=== PATIENT | female | born 1985 | race Caucasian/White ===

== ENCOUNTER 2019-03-02 10:05 | Inpatient (IN) ==
[2019-03-02] MEDS ORDERED: *HR* FentaNYL (PF) 100 MCG/2 ML VIAL ONE (10:51)
[2019-03-02] MEDS ORDERED: *HR* Morphine Sulfate/PF 10 MG/10 ML AMPUL ONE (10:51)
[2019-03-02] MEDS ORDERED: Ringers Solution, Lactated 1,000 ML ONE ×2 (11:15→13:29)
[2019-03-02] MEDS ORDERED: Ringers Solution, Lactated 1,000 ML IVC ONE (11:24)
[2019-03-02] MEDS ORDERED: Metoclopramide 10 MG/2 ML VIAL IVP ONE (11:24)
[2019-03-02] MEDS ORDERED: Famotidine 20 MG/2 ML VIAL IVP ONE (11:24)
--- NOTE | 2019-03-02 11:38 | OB/GYN Procedure Note ---
Section - Date of procedure: 03/02/19 Preop diagnosis: desires repeat , desires sterilization Post-op diagnosis: same Procedure: section, repeat low transverse, bilateral tubal ligation Surgeon: Ruby Dougherty Blood Loss: 400 Was there an assistant sales manager present: Yes Mica Miner: Gillian Galdamez (proctoring/precepting) Liquor Clerk: Delon Roland Anesthesia Type: Spinal section complications: none Disposition: L&D Recovery Room Specimens: Placenta, Right tube segment, Left tube segment - (s) A Delivery Date: 03/02/19 Infant Delivery Time: 10:32 Presentation: vertex Gender: Female Viability: Viable Pounds: 7 Ounces: 3 Gram Weight: 3.26 kg at 1 minute: 8 at 5 minutes: 9 Placenta: spontaneous Cord: nuchal cord, 3 umbilical vessels, delivered through nuchal - Narrative Narrative: Patient was taken to the operative suite and placed under spinal anesthetic. She was then prepped and draped in normal sterile fashion in the dorsal supine position. Timeout was then performed. Antibiotics were given at room time. SCDs are on and active. Pfannenstiel skin incision is then made and carried through to underlying layer of fascia with the Bovie. The fascia was then incised in the midline and incision extended laterally with the Solorio scissors. The fascia was tented up and dissected off the rectus muscles sharply. The rectus muscles were in the midline and the peritoneum was tented up and entered sharply with the Metzenbaum scissors. The peritoneal incision was then extended bluntly. The bladder blade was then inserted and the vesicouterine peritoneum was identified. A low transverse uterine incision was then made superior to the bladder reflection. The incision was extended digitally. The vertex was brought to the incision and the was delivered using fundal pressure. There was a loose nuchal cord that was delivered through. Cord was clamped and cut. Infant was handed to waiting nursery staff. Placenta delivered spontaneously complete and intact with a three-vessel cord. The uterus was cleared of all clots and debris using moist laparotomy sponge. The uterine incision was then closed using 0 Vicryl in a running locked fashion. A second layer of the same suture was used to obtain excellent hemostasis. Attention was then turned to the patient's tubes. The right tube was grasped and followed to the fimbriated end. The midportion of the tube was then grasped and elevated. A knuckle of tube was then double suture ligated using O plain gut. The knuckle of tube was then transected in a [place] fashion. Hemostasis was assured and the tube was returned to the abdomen. Attention was then turned to the patient's left adnexa. The left tube was then grasped and followed to the fimbriated end. The fimbria were adhered to the left ovary and the adhesions were taken down using the Bovie electrocautery. A partial salpingectomy with fimbriectomy was then performed using O plain gut. The distal portion of the t ube was then transected and hemostasis was assured. The tube was returned to the abdomen. The abdomen was then cleared of all clots and debris using copious irrigation. The fascial incision was then closed using 0 PDS in a running fashion. The subcuticular tissue was then reapproximated using 0 Vicryl in a running fashion. The skin was closed using 4-0 Vicryl in a subcuticular fashion. [place] dressing is then placed. Mother and taken to recovery in stable condition.
[2019-03-02 11:47] LABS: Basophils % 0.2 %; Eosinophils % 0.3 %; Hematocrit 36.5 % (35.3-44.9); Hemoglobin 11.3 g/dL (11.5-15.4); Immature Granulocytes % 0.4 % (0-4); Lymphocytes # 2.1 K/mcL (0.6-4.6); Lymphocytes % 22.9 %; Mean Corpuscular Volume 80.8 fL (83.0-100.0); Mean Platelet Volume 11.2 fL (9.4-12.4); Monocytes # 0.5 K/mcL (0.0-1.3); Monocytes % 5.5 %; Neutrophils # 6.4 K/mcL (1.6-8.9); Platelet Count 221 K/mcL (140-400); Red Blood Count 4.52 M/mcL (3.82-4.97); Red Cell Distribution Width 13.2 % (11.5-14.5); Segmented Neutrophils % 70.7 %
[2019-03-02 11:50] LABS: Amphetamine Screen,Urine Negative ng/mL (Cutoff=1000); Barbiturate Screen,Urine Negative ng/mL (Cutoff=200); Benzodiazepines Screen,Urine Negative ng/mL (Cutoff=200); Cannabinoid Screen,Urine Negative ng/mL (Cutoff = 50); Cocaine Screen,Urine Negative ng/mL (Cutoff= 300); Opiate Screen,Urine Negative ng/mL (Cutoff=300); Phencyclidine Screen,Urine Negative ng/mL (Cutoff=25)
--- NOTE | 2019-03-02 12:18 | Anesthesia Evaluation PreOp ---
Date of Encounter: 03/02/19 Time of Encounter: 12:16 - Past History Planned Operation: repeat c/s Cardiac History: Denies any Significant Hx Pulmonary History: Denies Any Significant HX FIRE PROTECTION ENGINEER History: Denies Any Significant HX Other Medical History: GERD Anesthesia History: No Prior Anesthetic Complications, Past Anesthesia (c/s, foot) : Yes Test: Positive Alcohol Use: none Drug use: none Medications and Allergies Pnv No.95/Ferrous Fum/Folic AC [ Caplet] 1 tab PO DAILY 03/02/19 [History] Allergy/AdvReac Type Severity Reaction Status Date / Time No Known Allergies Allergy Verified 07/26/17 05:20 - Meds/Allergy Pre-op Review Medications Reviewed: Yes Allergies Reviewed: Yes Beta Blockers on Current Med List: No Anesthesia Results - Labs 03/02/19 10:20 Anesthesia Exam 113/76 70 16 fht 133 Height: 4'11" Weight: 54k NPO (# of Hours): 12 Pain Scale: 1 Pain Scale Used: Numeric (1 - 10) - HEENT Pupil (Motor): Pupils equal Mallampati: II Teeth: Normal Oral Opening: Greater than 3 - FIRE PROTECTION ENGINEER LOC: Oriented FIRE PROTECTION ENGINEER Motor: Normal RUE, Normal LUE, Normal RLE, Normal LLE, Normal Face FIRE PROTECTION ENGINEER Sensory: Normal: RUE, LUE, RLE, LLE, Face - Cardiac Rhythm: Regular Murmur: None - Pulmonary Breath Sounds: bilateral Clear Respiratory Effort: Symmetrical Anesthesia Assess/Plan ASA Score: 2 Level of consciousness: Cooperative Anesthetic Plan: Spinal (risks discussed, questions answered, consented) Autologous Blood: Yes Monitoring Plan: Standard Monitors Recovery Plan: PACU
--- NOTE | 2019-03-02 12:28 | OB/GYN History & Physical ---
Date of Encounter: 03/02/19 Time of Encounter: 12:26 Assessment and Plan (1) 39 weeks gestation of Current visit: Yes Status: Acute (2) Previous delivery affecting Current visit: Yes Status: Acute Risks, benefits, and alternatives discussed previously and informed consent obtained. All questions have been answered for the patient and family. History of Present Illness Chief complaint: repeat HPI: Ms. Wells is a 33 year old female G2 P 1-0-0-1 at 39 1/7 weeks presents for r epeat section. She denies any contractions, vaginal bleeding, or leaking fluid. She reports good movement. Her has been uncomplicated. Past Med Surg Social Fam HX - Past Medical History Source: patient Medical history: no medical history Psychiatric history: no psych history - Past Surgical History Surgical History: , other Additional surgical history: right foot sx 2004, prev. c/s - Social History Smoking Status: Never smoker Smokeless Tobacco Status: No Alcohol use: none Drug use: none Occupational status: employed Current living situation: Home - Independent Activity Level: Independent ambulation - Family History Father Living Status: Still Living Hx Family Cardiac Disorders: Yes (aortic anerysm) Hx Family Respiratory Disorders: No Hx Family Cancer: No Hx Family GI Disorders: No Hx Family Endocrine Disorder: No Hx Family Neuromuscular Disorders: No Hx Family Neurologic Disorders: No Hx Family HEENT Disorders: No Hx Family Autoimmune Disorders: No Obstetrical History - Pregnancies : 2 Para: 1 Livin Medications and Allergies Pnv No.95/Ferrous Fum/Folic AC [ Caplet] 1 tab PO DAILY 03/02/19 [History] Allergy/AdvReac Type Severity Reaction Status Date / Time No Known Allergies Allergy Verified 07/26/17 05:20 Review of System OB All systems PM: reviewed and no additional remarkable complaints except as stated Exam - Constitutional Constitutional: well developed, well nourished, no acute distress, average body habitus - HEENT HEENT: EOMI - Neck Neck exam: full ROM - Lungs Respiratory exam: CTAB - Cardiovascular Cardiovascular exam: RRR - Abdomen Abdomen: Present: bowel sounds normal, gravid, non tender - Extremities Extremities exam: warm Results Result Diagrams: 03/02/19 10:20 Abnormal lab results Hgb 11.3 g/dL (11.5-15.4) L 03/02/19 10:20 MCV 80.8 fL (83.0-100.0) L 03/02/19 10:20 MCH 25.0 pg (28.0-33.3) L 03/02/19 10:20 MCHC 31.0 g/dL (31.6-35.5) L 03/02/19 10:20 All other labs normal. - VTE Reasons for not Prescribing Prophylaxis: Treatment not Indicated - Low risk for VTE
[2019-03-02] MEDS ORDERED: EPHEDrine 50 MG/ML VIAL ONE (12:54)
[2019-03-02] MEDS ORDERED: Acetaminophen IV 1,000 MG/100 ML INFUS..BTL IVPB ONE (13:22)
[2019-03-02] MEDS ORDERED: *HR* HYDROmorphone (PF) 1 MG/ML SYRINGE IVP PRN (13:22)
[2019-03-02] MEDS ORDERED: *HR* Meperidine 25 MG/ML SYRINGE IVP PRN (13:22)
[2019-03-02] MEDS ORDERED: Ondansetron 4 MG/2 ML VIAL IVP PRN ×2 (13:22→17:18)
--- NOTE | 2019-03-02 13:22 | Anesthesia Procedures ---
Date of Encounter: 03/02/19 Time of Encounter: 13:20 Procedures: Anesthesia - Epidural/Spinal Patient ID/Chart reviewed: Yes Patient examined: Yes OB Eval: Gestational age: 39 OB Eval: : 2 OB Eval: Hx Para: 1 OB Eval: Dilated at (cm): 1 OB Eval: Contractions: Non-stressed pattern Consent Obtained: Yes Supplemental Oxygen: None/Room Air Site Prep: Aseptic Technique, Sterile prep and drape, 0.5% Chlorhexidine/Alcohol Patient position: upright Local Anesthetic: Lidocaine 1% Amount of Local Anesthetic used: 3 Interspace Used: L3-L4 Loss of Resistance (POLI): No Blood: No CSF: Yes Paresthesia: No Spinal Dose: marcaine 12mg, duramorph 0.25 mg fentanyl 10mcg Procedure: aseptic, tolerated well, VSS, effective Vitals + FHT's: 111/78 88 16 fht 136
--- NOTE | 2019-03-02 14:03 | OB/GYN Procedure Note ---
Section - Date of procedure: 03/02/19 Preop diagnosis: desires repeat Post-op diagnosis: same Procedure: section, repeat low transverse Surgeon: Ruby Dougherty Blood Loss: 500 Was there an audiology assistant present: Yes Manager Epic: Thomas Liang [place]: Delon Roland Anesthesia Type: Spinal section complications: none Disposition: L&D Recovery Room Specimens: Placenta - Infant (s) A Delivery Date: 03/02/19 Delivery Time: 13:11 Presentation: vertex Position: OA Route of delivery: vacuum extraction Gender: Female Viability: Viable Pounds: 5 Ounces: 13 Gram Weight: 2.625 kg at 1 minute: 9 at 5 minutes: 9 Placenta: spontaneous Cord: 3 umbilical vessels - Narrative Narrative: Patient was taken to the operative suite and placed under spinal anesthetic. She was then prepped and draped in normal sterile fashion in the dorsal supine position. Timeout was then performed. Antibiotics were given at room time. SCDs are on and active. Pfannenstiel skin incision is then made and carried through to underlying layer of fascia with the Bovie. The fascia was then incised in the midline and incision extended laterally with the Solorio scissors. The fascia was tented up and dissected off the rectus muscles sharply. The rectus muscles were in the midline and the peritoneum was tented up and entered sharply with the Metzenbaum scissors. The peritoneal incision was then extended bluntly. The bladder blade was then inserted and the vesicouterine peritoneum was entered sharply. Bladder flap was created digitally. A low transverse uterine incision was then made. The vertexwas brought to the incision and the was delivered using fundal pressure after vacum application to the scalp. T here was one pop off during attempt at delivery. The kiwi was kept in the green pressure on the pressure gauge. There was no nuchal cord. Cord was clamped and cut. Infant was handed to waiting nursery staff. Placenta delivered spontaneously complete and intact with a three-vessel cord. The uterus was cleared of all clots and debris using moist laparotomy sponge. The uterine incision was then closed using 0 Vicryl in a running locked fashion. A second layer of the same suture was used to obtain excellent hemostasis. The abdomen was then cleared of all clots and debris using copious irrigation. The fascial incision was then closed using 0 Vicryl in a running fashion. The skin was closed using 4-0 Vicryl in a subcuticular fashion. Steri-Strips and sterile dressing are then placed. Mother and infant taken to recovery in stable condition.
--- NOTE | 2019-03-02 16:50 | Anesthesia Evaluation Post Op ---
Date of Encounter: 03/02/19 Time of Encounter: 16:50 - Vital Signs Vital Signs: see nsg note - Airway Airway: Non-obstructed - Cardiovascular Regular Rate - Mental Status Mental Status: Alert & Oriented, Answers Appropriately - Pain Pain Scale: 3 Pain Scale used: Numeric (1 - 10) - Nausea Vomiting Nausea Vomiting: Not Present - Hydration Hydration: NPO, Martinez catheter - Discharge PostOp Status: Transfer Patient to floor
[2019-03-02] MEDS ORDERED: Oxytocin 20 units/ LR 1000 mL 20 UNIT/1,000 ML BAG IVC SCH ×2 (17:18)
[2019-03-02] MEDS ORDERED: Acetaminophen 325 MG TABLET PO PRN (17:18)
[2019-03-02] MEDS ORDERED: Sennosides 8.6 MG TABLET PO PRN (17:18)
[2019-03-02] MEDS ORDERED: Metoclopramide 10 MG/2 ML VIAL IVP PRN (17:18)
[2019-03-02] MEDS ORDERED: *HR* OxyCODONE Immed Rel 5 MG TABLET PO PRN (17:18)
[2019-03-02] MEDS ORDERED: Simethicone 80 MG TAB.CHEW PO PRN (17:18)
[2019-03-02] MEDS ORDERED: *HR* OxyCODONE/APAP 5/325 TABLET PO PRN (17:18)
[2019-03-02] MEDS ORDERED: Naloxone 0.4 MG/ML INJ IVP PRN (17:18)
[2019-03-03] MEDS: Prenatal Vit/FA 1 EACH TABLET PO SCH (08:39)
[2019-03-03] MEDS: Ibuprofen 600 MG TABLET PO PRN ×3 (08:39→21:43)
[2019-03-03] MEDS ORDERED: Simethicone 80 MG TAB.CHEW PO PRN (15:41)
--- NOTE | 2019-03-03 20:20 | OB/GYN Progress Note ---
Date of Encounter: 03/03/19 Time of Encounter: 20:18 - Assessment and Plan (1) S/P section Current Visit: Yes Status: Acute POD1 s/p c/s recovering well - meeting day one milestones - voiding with out difficulty - pain well controlled on motrin - bleeding light - start routine wound care with dressing removed tomorrow (2) Breast feeding status of mother Current Visit: Yes Status: Acute Breast feeding - consult as needed - pump script provided Subjective - Subjective Principal diagnosis: s/p c/s Interval history: 33 y/o female s/p c/s POD one reports pain controlled with Motrin no opioids used. She is tolerating regular diet with flatus and small BM. Denies dysuria. Vitals reviewed. Minimal bleeding. Plans to breast feed with need for new pump. Patient denies history of post depression or mood disorder thus refused zoloft medication. She denies depression or anxiety. Patient reports: appetite normal, voiding normally, pain well controlled, ambulating normally : doing well, nursing well Objective - Vital Signs Latest vital signs: Vital Signs Temp Pulse Resp BP Pulse Ox 03/03/19 07:54 97.8 F 70 12 103/66 96 03/03/19 04:45 97.5 F L 67 14 110/65 98 03/03/19 00:05 97.8 F 70 16 114/74 100 Intake and Output 03/03/19 03/03/19 03/03/19 07:59 15:59 23:59 Intake Total 1540 / 2620 680 / 2620 400 / 2620 Output Total 1900 / 4100 2200 / 4100 Balance -360 / -1480 -1520 / -1480 400 / -1480 Intake: Oral 1540 / 2620 680 / 2620 400 / 2620 Output: Urine 900 / 3100 2200 / 3100 Catheter 1000 / 1000 Other: Meal Lunch Dinner Percent of Meal Consumed 80% 100% Weight 52.345 kg Patient Weight 03/03/19 23:59 Weight 52.345 kg - Exam Lungs: bilateral: normal Chest: Normal S1, Normal S2 Extremities: Present: normal. Absent: tenderness, edema Abdomen: Present: normal appearance, soft Incision: Present: dressed (dressing in place) Uterus: Present: normal, firm Fundal Height: 2 (u/2) Attestation Statement: I examined this patient and my medical decision making was reviewed with the resident physician. I agree with the documented findings, disposition, and treatment plan as described above. Patient is status post section, postop day 1, Meeting all postoperative milestones and assessment within normal limits as documented by resident physician
[2019-03-04] MEDS: Ibuprofen 600 MG TABLET PO PRN (06:35)
[2019-03-04 08:20] VITALS: BP 107/8
[2019-03-04] MEDS: Prenatal Vit/FA 1 EACH TABLET PO SCH (08:42)
--- NOTE | 2019-03-04 12:04 | Discharge Summary ---
Date of Encounter: 03/04/19 Time of Encounter: 12:01 - Discharge Diagnosis (1) Status post repeat low transverse section Priority: Primary Status: Acute Comments: Feeling well Tolerating regular diet Pain well-controlled with by mouth pain meds Ambulating independently Voiding independently Lochia light Passing flatus, no BM yet Vital signs stable Discharge home today (2) Breast feeding status of mother Priority: Secondary Status: Acute Comments: Community resources provided - Discharge Medications Prescriptions: New Breast Pump [BREAST PUMP] 1 each .ROUTE AD #1 each Docusate Sodium [Dulcolax Stool Softener] 100 mg PO BID #60 capsule Ibuprofen [Ibu] 600 mg PO Q6HR PRN #60 tablet PRN Reason: Pain Oxycodone HCl/Acetaminophen [Percocet 5-325 mg Tablet] 1 each PO Q6H PRN 7 Days #28 tablet PRN Reason: Moderate Pain Sertraline [Zoloft] 50 mg PO DAILY #30 tablet Ibuprofen [Motrin] 600 mg PO Q6HR PRN tablet PRN Reason: Cramping Acetaminophen [Tylenol] 325 mg PO Q6HR PRN tablet PRN Reason: Fever/Pain Docusate [Colace] 100 mg PO BID capsule Continued Pnv No.95/Ferrous Fum/Folic AC [ Caplet] 1 tab PO DAILY Home Medications: Pnv No.95/Ferrous Fum/Folic AC [ Caplet] 1 tab PO DAILY 03/02/19 [History] Breast Pump [BREAST PUMP] 1 each .ROUTE AD #1 each 03/03/19 [Rx] Docusate Sodium [Dulcolax Stool Softener] 100 mg PO BID #60 capsule 03/03/19 [Rx ] Ibuprofen [Ibu] 600 mg PO Q6HR PRN #60 tablet 03/03/19 [Rx] Oxycodone HCl/Acetaminophen [Percocet 5-325 mg Tablet] 1 each PO Q6H PRN 7 Days #28 tablet 03/03/19 [Rx] Sertraline [Zoloft] 50 mg PO DAILY #30 tablet 03/03/19 [Rx] Acetaminophen [Tylenol] 325 mg PO Q6HR PRN tablet 03/04/19 [Rx] Docusate [Colace] 100 mg PO BID capsule 03/04/19 [Rx] Ibuprofen [Motrin] 600 mg PO Q6HR PRN tablet 03/04/19 [Rx] Allergies/Adverse Reactions: Allergy/AdvReac Type Severity Reaction Status Date / Time No Known Allergies Allergy Verified 07/26/17 05:20 Data Procedures and tests throughout hospitalization: Laboratory Tests 03/02/19 03/02/19 10:20 10:20 WBC 9.1 RBC 4.52 Hgb 11.3 L Hct 36.5 MCV 80.8 L MCH 25.0 L MCHC 31.0 L RDW 13.2 Plt Count 221 MPV 11.2 Immature Gran % 0.4 Seg Neutrophils % 70.7 Lymphocytes % 22.9 Monocytes % 5.5 Eosinophils % 0.3 Basophils % 0.2 Neutrophils # 6.4 Lymphocytes # 2.1 Monocytes # 0.5 Eosinophils # 0.0 Basophils # 0.0 Urine Opiates Screen Negative Ur Barbiturates Screen Negative Ur Phencyclidine Scrn Negative Ur Amphetamines Screen Negative U Benzodiazepines Scrn Negative Urine Cocaine Screen Negative U Marijuana (THC) Screen Negative Ur Drug Screen Interp See Below Date of admission: 03/02/19 10:05 Primary care physician: Larisa Morales CNP Discharging clinician: Amirah Carrillo Anticipated date of discharge: 03/04/19 - Patient Status Disposition: Home, Self-Care Condition: Good Functional capacity at discharge: independent ambulation Overall status at discharge: patient is progressing back to baseline - Discharge Instructions Follow Up With: Larisa Morales CNP [Primary Care Provider] - Ruby Green DO [Partnered Physician] - - Diet and Activity Activity: increase activity as tolerated Diet: regular diet Hospital Course Reason for admission: section, IUP at term Delivery: Episiotomy: none Laceration: none Other procedures: none complications: none Discharge diagnosis: IUP at term delivered baby: female Time Attestation: Total time spent providing and/or coordinating discharge services: Time Spent: Less than 30 minutes - VTE Reasons for not Prescribing Prophylaxis: Treatment not Indicated - Low risk for VTE Documentation of Mechanical Device: Intermittent pneumatic compression device Exam - Constitutional Vitals: Temp Pulse Resp BP Pulse Ox 97.9 F 72 16 107/8 97 03/04/19 08:18 03/04/19 08:18 03/04/19 08:18 03/04/19 08:18 05/11/19 08:18 General appearance IM: A&O X 3 - Respiratory Respiratory exam: Present: CTAB - Cardiovascular Cardiovascular exam IM: Present: RRR, +S1, +S2 - GI/Abdominal GI/Abdominal exam IM: normal bowel sounds, no peritoneal signs Incision: normal, dry, intact - Rectal Rectal exam: deferred - Uterine Tone: Firm Uterus Position: At Umbilicus, Midline - Extremities Exam Extremities exam IM: Present: full ROM, normal capillary refill, normal inspection, radial pulses palpable and symmetrical - Neurological Exam Neurological exam: alert, CN II-XII intact, normal gait, oriented X3, reflexes normal, no focal deficits, strengths equal and symetr throughout - Psychiatric Additional comments: Patient denies history of anxiety and depression. Signs and symptoms of depression discussed with patient and partner and both verbalized understanding of when to seek help. - Skin Additional comments: Breasts: Soft, nontender; nipples intact without erythema
== END 2019-03-04 12:59 | disposition home or self-care (01) | DRG 788 ==
LOC: 1NENULAB 10:05 → 1NENUOBS 16:26
PROVIDERS: ADMIT Obstetrics & Gynecology; ATTEND Obstetrics & Gynecology